=== PATIENT | female | born 1955 | race Caucasian/White ===

== ENCOUNTER 2023-02-01 16:09 | Emergency (ER) | payer MEDICARE, MEDICAID ==
[~2023-02-01] VITALS: Ht 154.9 cm; Wt 68.2 kg
[2023-02-01 16:14] VITALS: BP 132/62; PULSE 82; RESP 18; TEMP 98.6
== END 2023-02-01 21:50 | disposition left against medical advice (07) ==
LOC: EMS 16:09
DX: M54.2 Cervicalgia (principal); Z53.21 Procedure and treatment not carried out due to patient leaving prior to being seen by health care provider
CPT/HCPCS: 99281; Z7502

== ENCOUNTER 2025-04-30 19:13 | Emergency (ER) | payer OTHER ==
[~2025-04-30] VITALS: Ht 154.9 cm; Wt 65.9 kg
[2025-04-30 19:24] VITALS: BP 133/67; PULSE 96; RESP 14; TEMP 98.1; O2SAT 98
[2025-04-30 21:50] LABS: COVID AG,FIA SOURCE NASAL SWAB
[2025-04-30 21:59] LABS: PLATELET COUNT (AUTO) 146 K/uL (150-450); RED BLOOD CELL COUNT(AUTO) 3.06 MIL/uL (4.00-5.20); RED CELL DISTRIBUTION WIDTH 14.7 % (11.5-14.5); WHITE BLOOD COUNT (AUTO) 2.6 K/uL (4.5-11.0)
[2025-04-30 22:03] LABS: CALCIUM, TOTAL 8.0 mg/dL (8.8-10.5); CREATININE 1.05 mg/dL (0.60-1.30); GLOMERULAR FILTR. RATE CALC 52 mL/min (>60); GLUCOSE,RANDOM 157 mg/dL (70-110); SODIUM SERUM 140 mmol/L (136-145); UREA NITROGEN, BLOOD 14 mg/dL (7-18)
[2025-04-30 22:12] LABS: TROPONIN I-HIGH SENSITIVITY 5 ng/L (<51)
[2025-04-30 22:21] LABS: INFLUENZA TYPE A NEGATIVE FOR TYPE A (NEGATIVE); INFLUENZA TYPE B NEGATIVE FOR TYPE B (NEGATIVE); SARS-COV2 (COVID) ANTIGEN,FIA Negative (Negative)
[2025-04-30 22:25] LABS: ASPARTATE AMINOTRANSFERASE 23 U/L (15-37); TOTAL PROTEIN, SERUM 6.6 g/dL (6.4-8.2)
[2025-04-30 22:41] LABS: APPEARANCE,URINE CLEAR (CLEAR); GLUCOSE, URINE (UA) NEGATIVE (NEGATIVE); LEUKOCYTE ESTERASE ,URINE NEGATIVE (NEGATIVE); NITRATE,URINE NEGATIVE (NEGATIVE); OCCULT BLOOD,URINE NEGATIVE (NEGATIVE); SPECIFIC GRAVITIY, URINE 1.009 (1.003-1.030)
== END 2025-04-30 23:30 | disposition home or self-care (01) ==
LOC: EMS 19:13
DX: I80.8 Phlebitis and thrombophlebitis of other sites (principal); R53.1 Weakness; R53.83 Other fatigue; Z85.43 Personal history of malignant neoplasm of ovary; Z86.718 Personal history of other venous thrombosis and embolism; Z90.710 Acquired absence of both cervix and uterus; Z20.822 Contact with and (suspected) exposure to COVID-19
CPT/HCPCS: 80048; 80076; 81003; 84484; 85025; 87804; 93005; 93971; 99284